=== PATIENT | male | born 1970 | race Caucasian/White ===

== ENCOUNTER → 2017-05-19 | Outpatient (REF) | LOC: AUD 08:40 | PROVIDERS: ATTEND Internal Medicine | DX: Z01.10 Encounter for examination of ears and hearing without abnormal findings (principal) | CPT/HCPCS: 92552 ==

== ENCOUNTER → 2018-05-11 | Outpatient (REF) | LOC: AUD 08:45 | PROVIDERS: ATTEND Internal Medicine | DX: Z01.12 Encounter for hearing conservation and treatment (principal) | CPT/HCPCS: 92552 ==

== ENCOUNTER 2018-08-12 16:15 | Emergency (ER) | payer BC ==
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
[2018-08-12] MEDS ORDERED: DIPHTH/TETANUS/ACEL. PERTUSSIS IM ONLY ONE (16:30)
[2018-08-12] MEDS ORDERED: MORPHINE 10 MG/ML SYR IM ONE (16:30)
[2018-08-12] MEDS ORDERED: HYDROMORPHONE HCL 1 MG/ML SYRINGE IM ONE (16:35)
[2018-08-12] MEDS ORDERED: fentaNYL CITR 100 MCG/2 ML AMP IVP ONE (18:30)
--- NOTE | 2018-08-12 18:30 | RADIOLOGY IMAGING REPORT ---
FACILITY: [facility] - [place] PATIENT NAME: Deyvi Willoughby : 1970 MR: [id number] V: [id number] EXAM DATE: ORDERING PHYSICIAN: MEG SOLORIO TECHNOLOGIST: Location: [facility] [place] Patient: Deyvi Willoughby : 1970 Visit/Account:[id number] Date of Sevice: 08/12/2018 TIBIA FIBULA LEFT HISTORY: COMPARISON: None FINDINGS: AP and lateral views of the tibia and fibula demonstrates the presence of a fracture of the tibial plateau. There is an apparent fracture of the fibular neck. IMPRESSION: Tibial plateau fracture. Probable fibular neck fracture. Report Dictated By: Paulo Devine at 08/12/2018 6:24 PM Report E-Signed By: Paulo Devine at 08/12/2018 6:25 PM WSN:[email or web address]
--- NOTE | 2018-08-12 18:32 | RADIOLOGY IMAGING REPORT ---
FACILITY: [facility] PATIENT NAME: Deyvi Willoughby : 1970 MR: [id number] V: [id number] EXAM DATE: ORDERING PHYSICIAN: MEG SOLORIO TECHNOLOGIST: Location: [facility] Patient: Deyvi Willoughby : 1970 Visit/Account:[id number] Date of Sevice: 08/12/2018 Study: KNEE 3 VIEW LEFT Indication: Injury Comparison study: None available Findings: AP oblique and lateral views of the left knee demonstrates the presence of a lipohemarthros is. There is a depressed lateral tibial plateau fracture. The fracture is comminuted. There is a frac ture through the fibular head. The distal femur appears to be intact. There is a bipartite patella pr esent. IMPRESSION: Lipohemarthrosis. Comminuted depressed lateral tibial plateau fracture. Fracture through fibular head. Report Dictated By: Paulo Devine at 08/12/2018 6:26 PM Report E-Signed By: Paulo Devine at 08/12/2018 6:28 PM WSN:[email or web address]
--- NOTE | 2018-08-12 18:33 | RADIOLOGY IMAGING REPORT ---
[place] [facility] [place]: Deyvi Willoughby : 1970 MR: [id number] V: [id number] EXAM DATE: ORDERING PHYSICIAN: MEG SOLORIO TECHNOLOGIST: Location: [facility] [place] Patient: Deyvi Willoughby : 1970 Visit/Account:[id number] Date of Sevice: 08/12/2018 Study: KNEE LIMITED RIGHT Indication: Injury Comparison study: None available Findings: AP lateral views of the right knee demonstrates no evidence of joint effusion. There is no evidence of acute fracture. There is no evidence of lytic or blastic bony lesions. There is a biparti te patella present. IMPRESSION: Unremarkable exam Report Dictated By: Paulo Devine at 08/12/2018 6:28 PM Report E-Signed By: Paulo Devine at 08/12/2018 6:29 PM WSN:[email or web address]
--- NOTE | 2018-08-12 18:34 | RADIOLOGY IMAGING REPORT ---
FACILITY: [facility] - [place] PATIENT NAME: Deyvi Willoughby : 1970 MR: [id number] V: [id number] EXAM DATE: ORDERING PHYSICIAN: MEG SOLORIO TECHNOLOGIST: Location: [facility] Patient: Deyvi Willoughby : 1970 Visit/Account:[id number] Date of Sevice: 08/12/2018 Study: FEMUR LEFT Indication: Injury Comparison study: None available Findings: AP and lateral views of the left femur demonstrates no evidence of acute fracture of the fe mur. There is no evidence of lytic or blastic bony lesions. Again noted is the presence of a lipohema rthrosis. IMPRESSION: No evidence of fracture of the left femur. Report Dictated By: Paulo Devine at 08/12/2018 6:29 PM Report E-Signed By: Paulo Devine at 08/12/2018 6:30 PM WSN:[email or web address]
--- NOTE | 2018-08-12 18:35 | RADIOLOGY IMAGING REPORT ---
FACILITY: [facility] PATIENT NAME: Deyvi Willoughby : 1970 MR: [id number] V: [id number] EXAM DATE: ORDERING PHYSICIAN: MEG SOLORIO TECHNOLOGIST: [place] [facility] [place] Patient: Deyvi Willoughby : 1970 Visit/Account:[id number] Date of Sevice: 08/12/2018 Study: ANKLE 2 VIEW LEFT Indication: Injury Comparison study: None available Findings: AP and lateral views of the left ankle demonstrates no evidence of acute fracture of the di stal tibia or fibula. The tarsal bones are unremarkable in appearance. There is no significant abnorm ality of the visualized soft tissues or joint spaces. IMPRESSION: Unremarkable exam Report Dictated By: Paulo Devine at 08/12/2018 6:29 PM Report E-Signed By: Paulo Devine at 08/12/2018 6:29 PM WSN:[email or web address]
--- NOTE | 2018-08-12 18:37 | RADIOLOGY IMAGING REPORT ---
FACILITY: [facility] - [place] PATIENT NAME: Deyvi Willoughby : 1970 MR: [id number] V: [id number] EXAM DATE: ORDERING PHYSICIAN: MEG SOLORIO TECHNOLOGIST: Location: [facility] [place] Patient: Deyvi Willoughby : 1970 Visit/Account:[id number] Date of Sevice: 08/12/2018 Study: HIP LEFT Indication: Injury Comparison study: None available Findings: AP view of the pelvis and a frog-leg view of the left hip demonstrates no evidence of acute bony abnormality. The pubic rami are unremarkable. There is no evidence of abnormality of the femora l heads or necks. The sacroiliac joints and iliac crests are unremarkable. IMPRESSION: Unremarkable exam Report Dictated By: Paulo Devine at 08/12/2018 6:30 PM Report E-Signed By: Paulo Devine at 08/12/2018 6:31 PM WSN:[email or web address]
[2018-08-12 19:30] VITALS: BP 121/86
== END 2018-08-12 19:40 | disposition short-term general hospital (02) ==
LOC: ER 16:38
DX: S82.145A Nondisplaced bicondylar fracture of left tibia, initial encounter for closed fracture (principal); S82.492A Other fracture of shaft of left fibula, initial encounter for closed fracture; V29.88XA Motorcycle rider (driver) (passenger) injured in other specified transport accidents, initial encounter
CPT/HCPCS: 73502; 73552; 73560; 73562; 73590; 73600; 90471; 90715; 96372; 96374; 99285; J1170; J3010; L1830

== ENCOUNTER → 2018-08-12 | Outpatient (CLI) | payer BC | LOC: AMB 19:22 | PROVIDERS: ATTEND Nurse Practitioner | DX: S82.202A Unspecified fracture of shaft of left tibia, initial encounter for closed fracture (principal); S82.002A Unspecified fracture of left patella, initial encounter for closed fracture; S82.402A Unspecified fracture of shaft of left fibula, initial encounter for closed fracture; V29.9XXA Motorcycle rider (driver) (passenger) injured in unspecified traffic accident, initial encounter | CPT/HCPCS: A0425; A0433 ==